=== PATIENT | female | born 1990 | race Hispanic/Latino ===

== ENCOUNTER 2018-10-09 05:34 | Emergency (ER) | payer SELFPAY ==
[~2018-10-09] VITALS: Ht 162.6 cm; Wt 89.4 kg
--- OUTSIDE RECORDS SUMMARY | 2018-10-09 05:37 | XMS REPORT ---
Author [facility] Address Unknown Phone Unavailable Care Team Providers Care Information Systems Professor Name Role Phone Unavailable Unavailable Payers Payer Name Policy Type Policy Number Effective Date Expiration Date Problems This patient has no known problems. Allergies, Adverse Reactions, Alerts Allergy Name Allergy Type Status Severity Reaction(s) Onset Date Inactive Date Treating Clinician Comments No Known Allergies DA Active U 2018-05-13 00:00:00 No Known Allergies DA Active U 2018-05-12 00:00:00 No Known Allergies DA Active U 2018-05-05 00:00:00 No Known Allergies DA Active U 2018-02-14 00:00:00 No Known Allergies DA Active U 2011-11-04 00:00:00 Medications This patient has no known medications. Results Test Description Test Time Test Comments Text Results Atomic Results Result Comments SURGICAL SPECIMENS 2018-05-16 07:43:00 RUN DATE: 05/16/18 [facility] *LIVE* PAGE 1 RUN TIME: 742 Specimen Inquiry RUN USER: INTERFACE PATIENT: LEN KENNEDY LOC: STEVE U #: [id number] AGE/SX: 27/F ROOM: [facility] RE05/13/18REG DR: Zulema Chanel MD : 88 BED: 1 DIS: STATUS: ADM IN TLOC: SPEC #: [id number] RECD: 05/14/18 STATUS: OMAR REQ #: [id number] SHARON: 05/14/[address] [facility] [address]: Zulema Chanel MD ENTERED: 05/15/18 SP TYPE: SURG SPEC OTHR DR: Alexei Herzog JR, MD ORDERED: GM LEVEL 4 CODES: [id number] - FALLOPIAN TUBE COPIES TO: Zulema Chanel MD [address] [facility] [place] [address] Alexei Herzog JR, MD [address] [place] [address] PROCEDURES: GM LEVEL 4 (Incomplete) TISSUES: 1. FALLOPIAN TUBE, NOS - Fallopian tube, right, segment 2. FALLOPIAN TUBE, NOS - Fallopian tube, left, segment FINAL DIAGNOSIS Fallopian tube, right, segment: Complete transection. Fallopian tube, left, segment: Complete transection; small benign paratubal cysts. GROSS AND MICROSCOPIC GROSS DESCRIPTION: Received in formalin and labeled "right fallopian tube" is a 9.9 x 0.9 cm buitrago, cylindrical segment. Auto Hiker cross-sections are submitted in (A). Received in formalin and labeled "left fallopian tube" is a 7.1 x 0.9 cm buitrago cylindrical segment. Auto Hiker cross-sections are submitted in (B). MICROSCOPIC EXAMINATION: Each fallopian tube segment has a completely transected lumen and is free of significant inflammation. The second specimen also shows small benign paratubal cysts. CONTINUED ON NEXT PAGE --RUN DATE: 05/16/18 [facility] *LIVE* PAGE 2 RUN TIME: 742 Specimen Inquiry RUN USER: INTERFACE SPEC #: [id number] PATIENT: LEN KENNEDY #[id number] (Continued) POST-OP DIAGNOSIS Desires sterilization, 39.3 week intrauterine preg jefferson, previous PRE-OP DIAGNOSIS Desires sterilization, 39.3 week intrauterine , previous Signed SIGNATURE ON FILE Ancelmo Mitchell MD 05/16/18 0743 END OF REPORT CBC W/AUTO DIFF 2018-05-14 07:28:00 WHITE BLOOD CELL (test code=WBC) 10.44 x10 3/uL 4.5-11.0 RED BLOOD CELL (test code=RBC) 3.25 x10 6/uL 3.54-5.02 HEMOGLOBIN (test code=HGB) 8.7 g/dL 11.0-15.0 HEMATOCRIT (test code=HCT) 28.2 % 33.0-45.0 MEAN CELL VOLUME (test code=MCV) 86.8 fL 81.0-99.0 MEAN CELL HGB (test code=MCH) 26.8 pg 27.0-33.0 MEAN CELL HGB CONCETRATION (test code=MCHC) 30.9 g/dL 33.0-37.0 RED CELL DISTRIBUTION WIDTH CV (test code=RDW) 13.2 % 11.5-14.5 RED CELL DISTRIBUTION WIDTH SD (test code=RDW-SD) 41.5 fL 37.0-54.0 PLATELET COUNT (test code=PLT) 195 x10 3/uL 150-400 MEAN PLATELET VOLUME (test code=MPV) 11.2 fL 7.0-9.0 NEUTROPHIL % (test code=NT%) 74.0 % 56.0-77.0 IMMATURE GRANULOCYTE % (test code=IG%) 0.5 % 0.0-2.0 LYMPHOCYTE % (test code=LY%) 18.2 % 14.0-32.0 MONOCYTE % (test code=MO%) 6.6 % 4.8-9.0 EOSINOPHIL % (test code=EO%) 0.5 % 0.3-3.7 BASOPHIL % (test code=BA%) 0.2 % 0.0-2.0 NUCLEATED RBC % (test code=NRBC%) 0.0 % 0-0 NEUTROPHIL # (test code=NT#) 7.73 x10 3/uL 2.0-7.6 IMMATURE GRANULOCYTE # (test code=IG#) 0.05 x10 3/uL 0.00-0.03 LYMPHOCYTE # (test code=LY#) 1.90 x10 3/uL 1.0-3.8 MONOCYTE # (test code=MO#) 0.69 x10 3/uL 0.1-0.8 EOSINOPHIL # (test code=EO#) 0.05 x10 3/uL 0.0-0.2 BASOPHIL # (test code=BA#) 0.02 x10 3/uL 0.0-0.2 NUCLEATED RBC # (test code=NRBC#) 0.00 x10 3/uL 0.0-0.1 MANUAL DIFF REQUIRED (test code=MDIFF) NO RAPID PLASMA [id number] 11:58:00* Test Item Value Reference Range Comments RAPID PLASMA REAGIN (test code=RPR) NONREACTIVE NONREACTIVE AG HEPATITIS B [id number] 11:58:00* Test Item Value Reference Range Comments AG HEPATITIS B SURFACE (test code=HBSAG) NON REACTIVE INDEX NonReactive AB HIV 1 11:58:00* Test Item Value Reference Range Comments AB HIV 1 2 (test code=LGZ86JH) NONREACTIVE INDEX NONREACTIVE RAPID PLASMA [id number] 10:44:00* Test Item Value Reference Range Comments RAPID PLASMA REAGIN (test code=RPR) NONREACTIVE NONREACTIVE AG HEPATITIS B [id number] 10:44:00* Test Item Value Reference Range Comments AG HEPATITIS B SURFACE (test code=HBSAG) NON REACTIVE INDEX NonReactive AB HIV 1 10:44:00* Test Item Value Reference Range Comments AB HIV 1 2 (test code=LDW38CY) INDEX NONREACTIVE RAPID PLASMA [id number] 10:41:00* Test Item Value Reference Range Comments RAPID PLASMA REAGIN (test code=RPR) NONREACTIVE AG HEPATITIS B [id number] 10:41:00* Test Item Value Reference Range Comments AG HEPATITIS B SURFACE (test code=HBSAG) NON REACTIVE INDEX NonReactive AB HIV 1 10:41:00* Test Item Value Reference Range Comments AB HIV 1 2 (test code=PDO47GA) INDEX NONREACTIVE CBC W/AUTO [id number] 09:50:00* Test Item Value Reference Range Comments WHITE BLOOD CELL (test code=WBC) 9.20 x10 3/uL 4.5-11.0 RED BLOOD CELL (test code=RBC) 4.05 x10 6/uL 3.54-5.02 HEMOGLOBIN (test code=HGB) 10.9 g/dL 11.0-15.0 HEMATOCRIT (test code=HCT) 34.9 % 33.0-45.0 MEAN CELL VOLUME (test code=MCV) 86.2 fL 81.0-99.0 MEAN CELL HGB (test code=MCH) 26.9 pg 27.0-33.0 MEAN CELL HGB CONCETRATION (test code=MCHC) 31.2 g/dL 33.0-37.0 RED CELL DISTRIBUTION WIDTH CV (test code=RDW) 12.8 % 11.5-14.5 RED CELL DISTRIBUTION WIDTH SD (test code=RDW-SD) 40.1 fL 37.0-54.0 PLATELET COUNT (test code=PLT) 258 x10 3/uL 150-400 MEAN PLATELET VOLUME (test code=MPV) 10.6 fL 7.0-9.0 NEUTROPHIL % (test code=NT%) 68.2 % 56.0-77.0 IMMATURE GRANULOCYTE % (test code=IG%) 0.8 % 0.0-2.0 LYMPHOCYTE % (test code=LY%) 23.5 % 14.0-32.0 MONOCYTE % (test code=MO%) 6.1 % 4.8-9.0 EOSINOPHIL % (test code=EO%) 1.2 % 0.3-3.7 BASOPHIL % (test code=BA%) 0.2 % 0.0-2.0 NUCLEATED RBC % (test code=NRBC%) 0.0 % 0-0 NEUTROPHIL # (test code=NT#) 6.28 x10 3/uL 2.0-7.6 IMMATURE GRANULOCYTE # (test code=IG#) 0.07 x10 3/uL 0.00-0.03 LYMPHOCYTE # (test code=LY#) 2.16 x10 3/uL 1.0-3.8 MONOCYTE # (test code=MO#) 0.56 x10 3/uL 0.1-0.8 EOSINOPHIL # (test code=EO#) 0.11 x10 3/uL 0.0-0.2 BASOPHIL # (test code=BA#) 0.02 x10 3/uL 0.0-0.2 NUCLEATED RBC # (test code=NRBC#) 0.00 x10 3/uL 0.0-0.1 MANUAL DIFF REQUIRED (test code=MDIFF) NO
[2018-10-09] MEDS ORDERED: ACETAMINOPHEN 325 MG TAB ONE (05:42)
[2018-10-09] MEDS ORDERED: ACETAMINOPHEN 325 MG TAB PO ONE ×2 (05:45)
[2018-10-09] MEDS ORDERED: IBUPROFEN 600 MG TAB ONE (06:34)
--- NOTE | 2018-10-09 06:50 | Diagnostic Imaging Report ---
Frontal and lateral views of the chest. HISTORY: Fever, cough COMPARISON: None available. DISCUSSION: Lungs: The lungs are well inflated. No evidence of a consolidative pneumonia or pulmonary alveolar edema. Pleura: No pleural effusion or pneumothorax. Heart and mediastinum: The cardiomediastinal silhouette appear(s) unremarkable. Bones and soft tissues: Appear unremarkable. IMPRESSION: No acute radiographic abnormality. Signed by: Dr. Erasmo Snow D.O., M.M.M. on 10/09/2018 6:47 AM
== END 2018-10-09 07:05 | disposition home or self-care (01) ==
LOC: ER 05:34
DX: R50.9 Fever, unspecified (principal); R05 Cough; J20.9 Acute bronchitis, unspecified
CPT/HCPCS: 71046; 99283